=== PATIENT | female | born 1965 | race Hispanic/Latino ===

== ENCOUNTER 2022-11-19 06:21 | Emergency (ER) | payer SELFPAY ==
--- OUTSIDE RECORDS SUMMARY | 2022-11-19 06:23 | XMS REPORT | Continuity of Care Document ---
:1965 Author Organization [facility] t Address [address] [place] [address] Care Team Providers Name Role Phone PCP, PATIENT DOES NOT HAVE A Primary Care Physician Unavaila ble OMAR Attending Clinician Unavailable WILLIE DECKER Attending Clinician Unavailable OMAR Admitting Clinician Unavailable Problems This patient has no known problems. Allergies, Adverse Reactions, Alerts Allergy Allergy Status Severity Reaction(s) Onset Inactive Treating Comm ents Source Name Type Date Date Clinician NO KNOWN Drug Active [facility] ALLERGIE [facility] Medications This patient has no known medications. Procedures This patient has no known procedures. Encounters Start End Encounter Admission Attending Care Care Encounter Source Date/Time Date/Time Type Type Clinicians Facility Department ID 2022-11-05 2022-11-05 Outpatient ANGÉLICA LINDSAY [id number] [place] 14:11:04 14:11:04 [id number] Delma Rodriguez 2022-04-24 2022-04-24 Outpatient OMAR BREWER [facility] [place] 00:00:00 00:00:00 [id number] [facility] 2019-11-27 2019-11-27 Outpatient Loren DECKER [facility] [id number] [place] 14:43:35 23:59:00 WILLIE [facility] Results This patient has no known results.
[2022-11-19 06:54] LABS: Absolute Lymphocytes (CBC) 3.4 K/uL (0.7-4.9); Hematocrit 30.8 % (36.0-45.0); Lymphocytes % 33.5 % (15.3-44.8); MCV 73.3 fL (80-100); MPV 7.2 fL (7.6-11.3)
[2022-11-19 07:19] LABS: Potassium 3.7 mmol/L (3.5-5.1); Troponin High Sensitivity 18.2 pg/mL (<58.9)
[2022-11-19 07:27] LABS: Urine Blood Trace-intact (Negative); Urine Glucose Negative (Negative); Urine Protein Negative (Negative); Urine Specific Gravity 1.015 (1.005-1.030)
[2022-11-19 07:41] LABS: Urine Bacteria <20 /HPF (<20); Urine Mucus Slight /HPF (None Seen); Urine RBC <5 /HPF (None Seen)
--- NOTE | 2022-11-19 07:55 | RAD REPORT ---
EXAM DESCRIPTION: Sandi Single View11/19/2022 6:53 am CLINICAL HISTORY: Shortness of breath COMPARISON: 2016 FINDINGS: The lungs appear clear of acute infiltrate. The heart may be borderline enlarged IMPRESSION: No acute abnormalities displayed
--- NOTE | 2022-11-19 07:59 | ER ---
Nurse's Notes [facility] Name: Melody Jang Age: 57 yrs Sex: Female : 1965 Arrival Date: 11/19/2022 Time: 06:25 Bed 19 Private MD: Diagnosis: Dyspnea, unspecified;Anemia, unspecified;Hematuria, unspecified Presentation: 11/19 06:39 Chief complaint: Patient states: I think I am having high blood pressure, It might be aa9 just anxiety, i just woke up and felt like my pressure was high. Coronavirus screen: Vaccine status: Patient reports receiving the 2nd dose of the covid vaccine. Ebola Screen: No symptoms or risks identified at this time. Initial Sepsis Screen: Does the patient meet any 2 criteria? No. Patient's initial sepsis screen is negative. Does the patient have a suspected source of infection? No. Patient's initial sepsis screen is negative. Risk Assessment: Do you want to hurt yourself or someone else? Patient reports no desire to harm self or others. Onset of symptoms was November 19, 2022. 06:39 Method Of Arrival: Ambulatory aa9 06:39 Acuity: ANEL 3 aa9 Triage Assessment: 06:41 General: Appears uncomfortable, obese, Behavior is appropriate for age, anxious. Pain: aa9 Denies pain. Neuro: Level of Consciousness is awake, alert, obeys commands, Oriented to person, place, time, situation. Cardiovascular: Patient's skin is warm and dry. Rhythm is regular. Respiratory: Airway is patent Respiratory effort is even, unlabored. GI: No signs and/or symptoms were reported involving the gastrointestinal system. : Reports orange tinted urine once about two days ago Denies burning with urination, urinary frequency. Derm: Skin is intact, is healthy with good turgor. Historical: - Allergies: 06:41 No Known Allergies; aa9 - Home Meds: 06:41 carvedilol Oral 1 tab [Active]; glimepiride 5mg Oral tab 1 tab once daily [Active]; aa9 metformin 1,000 mg Oral tab 1 tab 2 times per day [Active]; lisinopril 2.5 mg Oral tab 1 tab once daily [Active]; - PMHx: 06:41 Diabetes - NIDDM; Hyperlipidemia; Hypertension; ovarian cancer; aa9 - PSHx: 06:41 Total abdominal hysterectomy; aa9 - Immunization history:: Client reports receiving the 2nd dose of the Covid vaccine. - Social history:: Smoking status: Patient denies any tobacco usage or history of. - Family history:: not pertinent. - Hospitalizations: : No recent hospitalization is reported. Screenin:52 [facility] ED Fall Risk Assessment (Adult) History of falling in the last 3 months, ko1 including since admission No falls in past 3 months (0 pts) Confusion or Disorientation No (0 pts) Intoxicated or Sedated No (0 pts) Impaired Gait Yes (1 pt) Mobility Assist Device Used Yes (1 pt) Altered Elimination No (0 pt) Score/Fall Risk Level 0 - 2 = Low Risk Oriented to surroundings, Maintained a safe environment, Educated pt \T\ family on fall prevention, incl call for assistance when getting out of bed, Assessed \T\ reinforced patient's understanding of fall precautions, Provided non-skid footwear, Hourly rounding (assess needs \T\ fall precautionary measures) done, Used ambulatory aids as needed (educated on \T\ assisted with), Used gait belt as appropriate. Abuse screen: Denies threats or abuse. Denies injuries from another. Nutritional screening: No deficits noted. Tuberculosis screening: No symptoms or risk factors identified. Assessment: 07:48 General: Appears in no apparent distress. comfortable, Behavior is calm, cooperative, ko1 appropriate for age. Pain: Denies pain. Neuro: No deficits noted. Cardiovascular: No deficits noted. Respiratory: No deficits noted. GI: No deficits noted. : No deficits noted. EENT: No deficits noted. Derm: No deficits noted. Musculoskeletal: No deficits noted. Vital Signs: 06:39 BP 142 / 53; Pulse 74; Resp 14 S; Temp 98.1(O); Pulse Ox 100% on R/A; Weight 135.17 kg aa9 (R); Height 5 ft. 4 in. (162.56 cm) (R); Pain 0/10; 07:48 BP 129 / 55; Pulse 70; Resp 15; Temp 98; Pulse Ox 99% on R/A; ko1 08:07 BP 114 / 54; Pulse 68; Resp 15; Pulse Ox 99% ; ko1 06:39 Body Mass Index 51.15 (135.17 kg, 162.56 cm) aa9 ED Course: 06:25 Patient arrived in ED. jj6 06:26 Matthew Garcia MD is Attending Physician. rn 06:41 Triage completed. aa9 06:42 Arm band placed on. aa9 06:48 Patient has correct armband on for positive identification. Placed in gown. Bed in low aa9 position. Call light in reach. 06:49 Inserted saline lock: 20 gauge in right antecubital area, using aseptic technique. aa9 Blood collected. 06:49 Basic Metabolic Panel Sent. aa9 06:49 CBC with Diff Sent. aa9 06:49 NT PRO-BNP Sent. aa9 06:49 Troponin HS Sent. aa9 07:19 Attending Physician role handed off by Matthew Garcia MD ms3 07:19 Burke Holley DO is Attending Physician. ms3 07:25 Urine Microscopic Only Sent. ko1 07:48 Zenia Velazquez, RN is Primary Nurse. ko1 07:52 No provider procedures requiring assistance completed. ko1 07:58 David Caraballo DO is Referral Physician. ms3 08:07 IV discontinued, intact, bleeding controlled, No redness/swelling at site. Pressure ko1 dressing applied. Administered Medications: No medications were administered Medication: 07:52 VIS not applicable for this client. ko1 Outcome: 07:58 Discharge ordered by . ms3 08:11 Discharged to home ambulatory. ko1 08:11 Condition: improved 08:11 Discharge instructions given to patient, Instructed on discharge instructions, follow up and referral plans. medication usage, Demonstrated understanding of instructions, follow-up care, medications. 08:12 Patient left the ED. ko1 Signatures: Matthew Garcia MD MD rn Sims, Marcus, DO DO ms3 Lucille Iglesias jj6 Melissa Yip RN RN aa9 Zenia Velazquez, CM RN ko1 Corrections: (The following items were deleted from the chart) 06:50 06:41 : Reports burning with urination, aa9 aa9
--- NOTE | 2022-11-19 07:59 | EDPHYS ---
Physician Documentation [facility] Name: Melody Jang Age: 57 yrs Sex: Female : 1965 Arrival Date: 11/19/2022 Time: 06:25 Bed 19 Private MD: ED Physician Burke Holley HPI: 11/19 06:47 This 57 yrs old Female presents to ER via Ambulatory with complaints of High rn Blood Pressure. 06:47 The patient has elevated blood pressure and discovered this at home. Onset: The rn symptoms/episode began/occurred 1 week(s) ago. Modifying factors: The symptoms are aggravated by activity, The symptoms are alleviated by prescription meds. Associated signs and symptoms: Pertinent positives: dyspnea, Pertinent negatives: chest pain, headache, lightheadedness, visual changes, vomiting, weakness. Severity of symptoms: At its worst the blood pressure was moderate, in the emergency department the blood pressure is improved. The patient has experienced similar episodes in the past. The patient has not recently seen a physician. Pt reports has appt with pcp coming up, has had high BP in past, running high over last week, assoc with dyspnea on exertion. No chest pain. No syncope. No abd or back pain. NO focal neuro complaint. Also reports feels anxious when BP is high. . Historical: - Allergies: 06:41 No Known Allergies; aa9 - Home Meds: 06:41 carvedilol Oral 1 tab [Active]; glimepiride 5mg Oral tab 1 tab once daily [Active]; aa9 metformin 1,000 mg Oral tab 1 tab 2 times per day [Active]; lisinopril 2.5 mg Oral tab 1 tab once daily [Active]; - PMHx: 06:41 Diabetes - NIDDM; Hyperlipidemia; Hypertension; ovarian cancer; aa9 - PSHx: 06:41 Total abdominal hysterectomy; aa9 - Immunization history:: Client reports receiving the 2nd dose of the Covid vaccine. - Social history:: Smoking status: Patient denies any tobacco usage or history of. - Family history:: not pertinent. - Hospitalizations: : No recent hospitalization is reported. ROS: 06:47 Constitutional: Negative for fever, chills, and weight loss, Eyes: Negative for injury, rn pain, redness, and discharge, Cardiovascular: Negative for chest pain, palpitations, and edema, Respiratory: Negative for cough, wheezing, and pleuritic chest pain, Abdomen/GI: Negative for abdominal pain, nausea, vomiting, diarrhea, and constipation, Back: Negative for injury and pain, MS/Extremity: Negative for injury and deformity, Skin: Negative for injury, rash, and discoloration, Neuro: Negative for headache, weakness, numbness, tingling, and seizure. Exam: 06:47 Constitutional: This is a well developed, well nourished patient who is awake, alert, rn and in no acute distress. Head/Face: Normocephalic, atraumatic. Eyes: Pupils equal round and reactive to light, extra-ocular motions intact. Cardiovascular: Regular rate and rhythm. No pulse deficits. Respiratory: No increased work of breathing, no retractions or nasal flaring. Abdomen/GI: Soft, non-tender Skin: Warm, dry MS/ Extremity: Pulses equal, no cyanosis. Neuro: Awake and alert, GCS 15, oriented to person, place, time, and situation. Cranial nerves II-XII grossly intact. Motor strength 5/5 in all extremities. Sensory grossly intact. 08:14 ECG was reviewed by the Attending Physician. ms3 Vital Signs: 06:39 BP 142 / 53; Pulse 74; Resp 14 S; Temp 98.1(O); Pulse Ox 100% on R/A; Weight 135.17 kg aa9 (R); Height 5 ft. 4 in. (162.56 cm) (R); Pain 0/10; 07:48 BP 129 / 55; Pulse 70; Resp 15; Temp 98; Pulse Ox 99% on R/A; ko1 08:07 BP 114 / 54; Pulse 68; Resp 15; Pulse Ox 99% ; ko1 06:39 Body Mass Index 51.15 (135.17 kg, 162.56 cm) aa9 MDM: 06:26 Patient medically screened. rn 07:45 Independent interpretation of the following test(s) in the Emergency Department X-Ray: ms3 My interpretation is CXR image reviewed by me: Negative for PNA, PTX.. 08:06 Differential diagnosis: hypertensive crisis, ACS vs arrhythmia. Data reviewed: vital ms3 signs, nurses notes, lab test result(s), EKG, radiologic studies, plain films. Counseling: I had a detailed discussion with the patient and/or guardian regarding: the historical points, exam findings, and any diagnostic results supporting the discharge/admit diagnosis, lab results, radiology results, the need for outpatient follow up, to return to the emergency department if symptoms worsen or persist or if there are any questions or concerns that arise at home. ED course: Discussed labs, chest x-ray, EKG with patient. Patient to follow-up with Dr. Caraballo in 2 to 3 days. Patient understands agrees with plan. All questions were answered. Return precautions discussed include worsening symptoms, or any other concerns. On reevaluation patient is alert and oriented x4, no apparent distress, nontoxic, ambulatory in the emergency department, speaking full sentences. 11/19 06:37 Order name: Basic Metabolic Panel rn 11/19 06:37 Order name: CBC with Diff rn 11/19 06:37 Order name: NT PRO-BNP rn 11/19 06:37 Order name: Troponin HS rn 11/19 06:37 Order name: Urine Microscopic Only rn 11/19 06:55 Order name: CBC with Automated Diff; Complete Time: 06:59 EDMS 11/19 06:37 Order name: XRAY Chest (1 view) rn 11/19 06:37 Order name: EKG; Complete Time: 06:37 rn 11/19 07:19 Order name: Basic Metabolic Panel; Complete Time: 07:45 EDMS 11/19 07:19 Order name: Troponin High Sensitivity; Complete Time: 07:45 EDMS 11/19 07:19 Order name: NT PRO-BNP; Complete Time: 07:45 EDMS 11/19 07:27 Order name: Urine Dipstick-Ancillary; Complete Time: 07:45 EDMS 11/19 07:42 Order name: Urine Microscopic Only; Complete Time: 07:45 EDMS 11/19 07:55 Order name: RAD; Complete Time: 08:34 EDMS 11/19 06:37 Order name: Cardiac monitoring; Complete Time: 06:49 rn 11/19 06:37 Order name: EKG - Nurse/Tech; Complete Time: 06:57 rn 11/19 06:37 Order name: IV Saline Lock; Complete Time: 06:49 rn 11/19 06:37 Order name: Labs collected and sent; Complete Time: 06:49 rn 11/19 06:37 Order name: O2 Per Protocol; Complete Time: 06:49 rn 11/19 06:37 Order name: O2 Sat Monitoring; Complete Time: 06:49 rn 11/19 06:37 Order name: Urine Dipstick-Ancillary (obtain specimen); Complete Time: 07:25 rn EC:14 Rate is 71 beats/min. Rhythm is regular. Left axis deviation noted. MD interval is ms3 normal. QRS interval is normal. Clinical impression: NSR w/ Non-specific ST/T Changes. Interpreted by me. Reviewed by me. Administered Medications: No medications were administered Disposition Summary: 11/19/22 07:58 Discharge Ordered Location: Home ms3 Condition: Stable ms3 Diagnosis - Dyspnea, unspecified ms3 - Anemia, unspecified ms3 - Hematuria, unspecified ms3 Followup: ms3 - With: David Caraballo DO - When: 2 - 3 days - Reason: Recheck today's complaints Discharge Instructions: - Discharge Summary Sheet ms3 - Anemia ms3 - Hematuria, Adult ms3 - Shortness of Breath, Adult ms3 Forms: - Medication Reconciliation Form ms3 - Thank You Letter ms3 - Antibiotic Education ms3 - Prescription Opioid Use ms3 Signatures: Dispatcher [employer] EDMatthew Anglin MD MD rn Burke Holley DO DO ms3 Melissa Yip, RN RN aa9
[2022-11-19 08:20] VITALS: TEMP 98; O2SAT 99
[2022-11-19 08:21] VITALS: BP 114/54
--- NOTE | 2022-11-19 16:29 | EKG ---
Test Date: 2022-11-19 Test Time: 06:55:23 Last Putter Away: MAJNIT MEASUREMENT RESULTS: Intervals: Rate: 71 OR: 144 QRSD: 82 QT: 360 QTc: 391 [place]: P: 12 OR: 144 QRS: -9 T: 17 INTERPRETIVE STATEMENTS: Normal sinus rhythm Possible Lateral infarct, age undetermined Abnormal ECG No previous ECG available for comparison Electronically Signed On 11-19-22 16:28:49 PENSION CONSULTANT by Tony Topete
== END 2022-11-19 08:12 | disposition home or self-care (01) ==
LOC: ER 06:21
DX: R06.00 Dyspnea, unspecified (principal); D64.9 Anemia, unspecified; R31.9 Hematuria, unspecified
CPT/HCPCS: 36415; 71045; 80048; 81003; 81015; 83880; 84484; 85025; 93005; 99283